=== PATIENT | male | born 1965 | race African-American/Black ===

== ENCOUNTER 2025-07-05 17:12 | Emergency (ER) | payer OTHER, SELFPAY ==
[2025-07-05 17:17] VITALS: BP 134/74; PULSE 82; TEMP 36.6; O2SAT 97; BMI 34.9
[2025-07-05 17:25] VITALS: BP 147/85; O2SAT 100
[2025-07-05 17:30] VITALS: O2SAT 100
[2025-07-05 17:31] VITALS: O2SAT 87
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
[2025-07-05 17:50] VITALS: O2SAT 100
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
[2025-07-05] MEDS: 0.9 % SODIUM CHLORIDE 1,000 ML 1000 ML IV (17:58)
[2025-07-05 18:06] LABS: Hematocrit 49.6 % (42.0-54.0); Hemoglobin 17.0 g/dL (14.0-18.0); Immature Granulocytes Abs Auto 0.06 10^3/uL (0.00-0.03); Immature Granulocytes Pct Auto 0.4 % (0.0-0.5); Lymphocytes Absolute Auto 1.4 10^3/uL (1.2-3.8); Mean Corpuscular HGB Conc 34.3 g/dL (29.9-35.2); Mean Corpuscular Hemoglobin 30.8 pg (25.9-34.0); Mean Corpuscular Volume 89.9 fL (80.0-94.0); Platelet Count 240 10^3/uL (150-450); Red Blood Count 5.52 10^6/uL (4.70-6.10); White Blood Count 14.7 10^3/uL (4.0-11.0)
[2025-07-05 18:22] LABS: INR 0.97; Partial Thromboplastin Time 22.7 sec (22.3-36.2); Prothrombin Time 10.3 sec (9.0-11.6)
[2025-07-05 18:26] LABS: Alanine Aminotransferase 58 U/L (16-63); Albumin Globulin Ratio 0.7; Albumin Level 3.5 g/dL (3.4-5.0); Alkaline Phosphatase 98 U/L (46-116); Anion Gap 15.6; Aspartate Amino Transferase 34 U/L (15-37); Blood Urea Nitrogen 10.0 mg/dL (7.0-18.0); Calcium 9.5 mg/dL (8.5-10.1); Carbon Dioxide 24.5 mmol/L (21.0-32.0); Chloride 104 mmol/L (98-107); Estimated GFR (African America >60 (>=60 mL/min/1.73m^2); Estimated GFR (Non-African Ame 53 (>=60 mL/min/1.73m^2); Globulin 4.7 g/dL; Glucose 310 mg/dL (74-106); Potassium 4.1 mmol/L (3.5-5.1); Sodium 140 mmol/L (136-145); Total Protein 8.2 g/dL (6.4-8.2)
[2025-07-05 18:31] VITALS: BP 143/93
[2025-07-05] MEDS: MORPHINE SULFATE 4 MG/ML VIAL IV (18:54)
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
[2025-07-05 19:06] LABS: Glucose Urine UA >=1000 mg/dL (NEGATIVE)
[2025-07-05 19:18] LABS: Cast Seen? NONE SEEN #/LPF (NONE SEEN); Crystals Seen? None Seen #/HPF (None Seen); Urine Culture Indicated NO
--- NOTE | 2025-07-05 22:37 | PC.NURSE ---
Ortho glass splint applied to left hand/ wrist/ thumb, pt tolerated well, pms intact pre and post splint application, large sling applied
[2025-07-05] MEDS: HYDROCODONE/ACET 5-325 MG TABLET 2 TAB PO (22:41)
== END 2025-07-05 22:43 | disposition home or self-care (01) ==
PROVIDERS: Student in an Organized Health Care Education/Training Program; Emergency Provider Internal Medicine
DX: S62.112A Displaced fracture of triquetrum [cuneiform] bone, left wrist, initial encounter for closed fracture (principal); S62.002A Unspecified fracture of navicular [scaphoid] bone of left wrist, initial encounter for closed fracture; S63.045A Dislocation of carpometacarpal joint of left thumb, initial encounter; M25.532 Pain in left wrist; M25.521 Pain in right elbow; M79.605 Pain in left leg; V23.49XA Other motorcycle driver injured in collision with car, pick-up truck or van in traffic accident, initial encounter; V29.498A Other motorcycle driver injured in collision with other motor vehicles in traffic accident, initial encounter
CPT/HCPCS: 36415; 70450; 71260; 72125; 73070; 73100; 73590; 74177; 80053; 80320; 81001; 84484; 85025; 85610; 85730; 86850; 86900; 86901; 96374; 99285; J2270; Q9967